=== PATIENT | female | born 1940 ===

== ENCOUNTER 2024-10-22 11:45 | Inpatient (IN) | payer OTHER ==
[~2024-10-22] VITALS: Ht 167.6 cm; Wt 63.5 kg
[2024-10-22 14:12] VITALS: BP 130/84
[2024-10-29] MEDS ORDERED: DEXAMETHASONE SODIUM PHOSPHATE 4 MG/ML VIAL IV ONE (13:00)
[2024-10-29] MEDS ORDERED: ONDANSETRON HCL 2 MG/ML VIAL IV PRN (15:30)
[2024-10-29] MEDS ORDERED: ENALAPRILAT DIHYDRATE 1.25 MG/ML VIAL IV PRN (15:30)
[2024-10-29 16:50] VITALS: BP 151/73; O2SAT 96
[2024-10-29] MEDS ORDERED: CYCLOBENZAPRINE HCL 5 MG TABLET PO SCH (17:00)
[2024-10-29] MEDS ORDERED: ACETAMINOPHEN 500 MG GEL..CAP PO SCH (17:00)
[2024-10-29] MEDS ORDERED: TRAMADOL HCL 50 MG TABLET PO PRN (20:45)
[2024-10-29] MEDS ORDERED: PANTOPRAZOLE SODIUM 40 MG/VIAL VIAL IV PUSH SCH (21:00)
[2024-10-30 01:23] VITALS: BP 147/72; O2SAT 98
== END 2024-10-30 11:59 | disposition home or self-care (01) | DRG 627 ==
LOC: O/R 10-29 09:30 → SURH 10-29 11:45
PROVIDERS: ADMIT Surgery; ATTEND Surgery
PROC: 0GBL0ZZ Excision of Right Superior Parathyroid Gland, Open Approach (ICD-10-PCS; principal; 2024-10-29 14:45)
DX: D35.1 Benign neoplasm of parathyroid gland (principal); E21.0 Primary hyperparathyroidism